=== PATIENT | male | born 1965 | race African-American/Black ===

== ENCOUNTER 2016-06-24 03:00 | Emergency (ER) | payer OTHER ==
[~2016-06-24] VITALS: Ht 157.5 cm; Wt 88.6 kg
[~2016-06-24 03:00] MED LIST: ADVIL200 MG; ATORVASTATIN CA10 MG PO; CLEOCIN300 MG PO; HYCODAN SYRUP480 ML PO; LEVAQUIN750 MG PO; LISINOPRIL-HCT1 EAC3 PO; LISINOPRIL40 MG PO; LO-DOSE ASPIRIN81 M2 PO; METOPROLOL TART50 MG PO; NORCO 5/3251 TABLET PO; PREDNISONE10 M1 PO; PREDNISONE20 MG PO; VENTOLIN HFA18 GM IH; ZESTRIL40 MG PO; ZITHROMAX Z-PA250 MG PO
[2016-06-24] MEDS ORDERED: SOLU-MEDRO125 MG/21 PO (04:12)
[2016-06-24] MEDS ORDERED: PERCOCET 5/31 TABLET PO (05:48)
[2016-06-24 06:04] VITALS: BP 190/137
== END 2016-06-24 06:10 | disposition home or self-care (01) ==
LOC: EME 03:00
DX: S42.132A Displaced fracture of coracoid process, left shoulder, initial encounter for closed fracture (principal); S42.202A Unspecified fracture of upper end of left humerus, initial encounter for closed fracture; W19.XXXA Unspecified fall, initial encounter; I10 Essential (primary) hypertension; F12.10 Cannabis abuse, uncomplicated; Z90.01 Acquired absence of eye; Z79.82 Long term (current) use of aspirin
CPT/HCPCS: 73020; 73030; 73200; 99281; 99285; J1170; J1885; J2270; J2405

== ENCOUNTER 2016-12-01 21:00 | Emergency (ER) | payer OTHER ==
[~2016-12-01] VITALS: Ht 157.5 cm; Wt 81.8 kg
[~2016-12-01 21:00] MED LIST changes: +PERCOCET 5/31 TABLET PO; +SOLU-MEDRO125 MG/21 PO
[2016-12-01] MEDS ORDERED: MEDROL DOSEPAK4 MG PO (21:28)
[2016-12-01] MEDS ORDERED: PERCOCET 5/31 TABLET PO (21:28)
[2016-12-01] MEDS ORDERED: VALIUM5 MG PO (21:28)
[2016-12-01 21:51] VITALS: BP 147/86
== END 2016-12-01 21:52 | disposition home or self-care (01) ==
LOC: EME 21:00
DX: M54.5 Low back pain (principal); I10 Essential (primary) hypertension
CPT/HCPCS: 99281; 99283

== ENCOUNTER 2017-05-30 18:18 | Emergency (ER) | payer OTHER ==
[~2017-05-30] VITALS: Ht 157.5 cm; Wt 92.3 kg
[~2017-05-30 18:18] MED LIST changes: +MEDROL DOSEPAK4 MG PO; +VALIUM5 MG PO
[2017-05-30 19:19] LABS: ADD MIUA? YES; BILIRUBIN NEGATIVE; BLOOD SMALL; COLOR YELLOW ((YELLOW)); GLUCOSE (STRIP) NEGATIVE; KETONES NEGATIVE; LEUKOCYTES LARGE; NITRITE NEGATIVE; PROTEIN (STRIP) >=500; SPECIFIC GRAVITY 1.013 (1.000-1.030)
[2017-05-30 19:38] LABS: BACTERIA NONE SEEN /HPF; EPITHELIAL CELLS NONE SEEN /HPF; MUCUS TRACE /LPF; RED BLOOD CELLS 0-5 /HPF (0-5); UCUL ADDED? YES; WHITE BLOOD CELLS TNTC /HPF (0-5)
[2017-05-30 22:33] VITALS: BP 150/113
[2017-06-01 13:32] LABS: CHLAMYDIA TRACHOMATIS NEGATIVE; NEISSERIA GONORRHOEAE POSITIVE
== END 2017-05-30 22:34 | disposition home or self-care (01) ==
LOC: EME 18:18
DX: N34.2 Other urethritis (principal); I10 Essential (primary) hypertension; T46.5X6A Underdosing of other antihypertensive drugs, initial encounter; Z91.128 Patient's intentional underdosing of medication regimen for other reason; F17.200 Nicotine dependence, unspecified, uncomplicated
CPT/HCPCS: 81003; 87077; 87086; 87185; 87254; 87491; 87591; 99281; 99284; J0696

== ENCOUNTER 2017-07-11 09:03 | Emergency (ER) | payer OTHER ==
[~2017-07-11] VITALS: Ht 157.5 cm; Wt 91.9 kg
[2017-07-11 10:50] LABS: HEMATOCRIT 37.3 % (38.0-50.0); HEMOGLOBIN 12.8 G/DL (12.5-16.6); MCH 28.2 PG (29.0-34.0); MCHC 34.3 G/DL (30.0-36.0); MCV 82.2 FL (86-99); PLATELET COUNT 285 K/uL (156-360); RBC DIS.WIDTH-CV 14.2 % (11.8-14.6); RBC DIS.WIDTH-SD 42.1 % (39-53); RED BLOOD COUNT 4.54 M/uL (4.00-5.50); WHITE BLOOD COUNT 13.1 K/uL (4.1-10.2)
[2017-07-11 10:58] LABS: CHLORIDE 108 mEq/L (99-109); POTASSIUM 4.2 mEq/L (3.7-5.4); SODIUM 141 mEq/L (136-147)
[2017-07-11 11:00] LABS: GLUCOSE 91 mg/dL (70-99)
[2017-07-11 11:04] LABS: GFR ESTIMATE (CALCULATED) 45 mL/min/ (58.99-99999); UREA NITROGEN (BUN) 16 mg/dL (9-23)
[2017-07-11] MEDS ORDERED: SUDAFED 12-HOU120 MG PO (11:30)
[2017-07-11] MEDS ORDERED: CHLORASEPTIC177 ML MM (11:30)
[2017-07-11 11:48] VITALS: BP 113/79
== END 2017-07-11 12:16 | disposition home or self-care (01) ==
LOC: EME 09:03
PROVIDERS: Physician Assistant
DX: B34.9 Viral infection, unspecified (principal); I10 Essential (primary) hypertension; F17.200 Nicotine dependence, unspecified, uncomplicated; Z79.82 Long term (current) use of aspirin
CPT/HCPCS: 80048; 85027; 87502; 99281; 99283

== ENCOUNTER 2017-08-06 01:29 | Emergency (ER) | payer OTHER ==
[~2017-08-06] VITALS: Ht 157.5 cm; Wt 92.9 kg
[~2017-08-06 01:29] MED LIST changes: +CHLORASEPTIC177 ML MM; +SUDAFED 12-HOU120 MG PO
[2017-08-06] MEDS ORDERED: CLEOCIN300 MG PO (02:53)
[2017-08-06] MEDS ORDERED: PERCOCET 5/31 TABLET PO (02:53)
[2017-08-06 03:13] VITALS: BP 187/95
== END 2017-08-06 03:14 | disposition home or self-care (01) ==
LOC: EME 01:29
PROC: 0H9BXZX Drainage of Right Upper Arm Skin, External Approach, Diagnostic (ICD-10-PCS; principal; 2017-08-06)
DX: L02.411 Cutaneous abscess of right axilla (principal); I10 Essential (primary) hypertension; E78.5 Hyperlipidemia, unspecified
CPT/HCPCS: 87070; 87075; 87077; 87147; 87186; 87205; 99281; 99284

== ENCOUNTER 2017-08-08 09:50 | Emergency (ER) | payer OTHER ==
[~2017-08-08] VITALS: Ht 157.5 cm; Wt 93.3 kg
[2017-08-08] MEDS ORDERED: BACTRIM,SEPT1 TABLET PO (11:02)
[2017-08-08 11:13] VITALS: BP 186/113
== END 2017-08-08 11:14 | disposition home or self-care (01) ==
LOC: EME 09:50
DX: L02.411 Cutaneous abscess of right axilla (principal); Z48.01 Encounter for change or removal of surgical wound dressing; I10 Essential (primary) hypertension; Z79.82 Long term (current) use of aspirin; Z72.0 Tobacco use

== ENCOUNTER 2018-01-12 14:17 | Emergency (ER) | payer OTHER ==
[~2018-01-12] VITALS: Ht 157.5 cm; Wt 86.1 kg
[~2018-01-12 14:17] MED LIST changes: +BACTRIM,SEPT1 TABLET PO
[2018-01-12] MEDS ORDERED: FLONASE16 G1 BOTH NARES (16:57)
[2018-01-12 17:19] VITALS: BP 105/67
== END 2018-01-12 17:20 | disposition home or self-care (01) ==
LOC: EME 14:17
DX: J06.9 Acute upper respiratory infection, unspecified (principal); A63.0 Anogenital (venereal) warts; I10 Essential (primary) hypertension; Z79.82 Long term (current) use of aspirin; F17.200 Nicotine dependence, unspecified, uncomplicated; F12.90 Cannabis use, unspecified, uncomplicated
CPT/HCPCS: 71046; 87651 90; 99281; 99284